=== PATIENT | female | born 1985 | race African-American/Black ===

== ENCOUNTER 2017-09-30 15:59 | Emergency (ER) | END 2017-09-30 19:45 | disposition home or self-care (01) | DX: I10 Essential (primary) hypertension (principal); H66.003 Acute suppurative otitis media without spontaneous rupture of ear drum, bilateral; J02.8 Acute pharyngitis due to other specified organisms; B97.89 Other viral agents as the cause of diseases classified elsewhere; Z72.0 Tobacco use | CPT/HCPCS: 87081; 87880; 96372; 99283; J1100 ==